=== PATIENT | male | born 1970 | race African-American/Black ===

== ENCOUNTER 2017-08-02 09:12 | Observation (INO) ==
[2017-08-02] MEDS ORDERED: NS 500 ML IV ONE (09:15)
[2017-08-02 09:47] VITALS: O2SAT 100
--- NOTE | 2017-08-02 09:53 | Emergency Department Report ---
Weakness HPI - General Chief complaint: Medical Emergency Stated complaint: lightheaded Time Seen by Provider: 08/02/17 09:14 Source: patient, family, EMS, RN notes reviewed, old records reviewed Mode of arrival: EMS Limitations: no limitations - History of Present Illness HPI Narrative: 47yo man presents to the ER for evaluation of 'dizziness'. Pt has had one week of progressive weakness, racing heart, cold sweats, and 'dizziness' (presyncope) . Pts sx got abruptly worse overnight. He called EMS this AM for txfr and evaluation as a result. Pt has not had these sx prior to a week ago. Denies taking medications. Admits to snorting some meth 2 weeks ago at the urging of a 'friend', but denies any illicit substances, other than 'weed'. MD Complaint: generalized weakness Onset (ago): week(s) (1) Duration: intermittent Location: generalized Migration: none Severity: severe Relieving factors: none Exacerbating factors: exertion, other (micturation) Associated symptoms: denies other symptoms - Related Data Home Medications Medication Instructions Recorded Confirmed No known Home medications [No home 08/02/17 08/02/17 meds] Allergies Allergy/AdvReac Type Severity Reaction Status Date / Time No Known Allergies Allergy Verified 08/02/17 09:39 Review of Systems All systems: reviewed and negative except as stated Constitutional: Reports: as per HPI, chills, weakness, night sweats. Denies: fever, weight change Cardiovascular: Reports: as per HPI, dyspnea on exertion, other (Racing heart). Denies: chest pain, palpitations, orthopnea, edema, syncope, paroxysmal nocturnal dyspnea Neurological: Reports: as per HPI, weakness. Denies: headache, numbness, paresthesias, confusion, abnormal gait, vertigo PFSH Patient Stated Medical History Substance Use Disorder Yes: MARIJUANA, METH HX Medical History Updates: Denies - Social History Smoking status: Current every day smoker (7 cigarets) Time spent discussing smoking cessation with patient: 3 to 10 minutes Physical Exam - Limitations Limitations: no limitations - General General appearance: alert, in no apparent distress - Head Head exam: atraumatic, normocephalic, normal inspection - Eye Eye exam: Present: normal appearance, PERRL, EOMI, other (Arcus senilis). Absent: scleral icterus - ENT ENT exam: Present: normal exam, normal oropharynx, mucous membranes moist, normal external ear exam - Neck Neck exam: Present: normal inspection, full ROM, trachea midline. Absent: tenderness, lymphadenopathy - Chest Chest inspection: Present: normal inspection, symmetric chest wall rise. Absent : tenderness, rash - Respiratory Respiratory exam: Present: normal lung sounds bilaterally. Absent: respiratory distress, wheezes, stridor, prolonged expiratory phase, crackles - Cardiovascular Cardiovascular exam: Present: normal rhythm, tachycardia, normal heart sounds. Absent: rubs, gallop, clicks - Abdominal Exam Abdominal exam: Present: soft, normal bowel sounds. Absent: distention, tenderness, guarding, rebound, rigidity - Extremities Exam Extremities exam: Present: normal inspection, full ROM, normal capillary refill. Absent: tenderness, pedal edema - Skin Skin exam: Present: warm, dry, intact. Absent: rash - Neurological Exam Neurological exam: Present: alert, oriented X3, CN II-XII intact, normal gait, motor sensory deficit - Psychiatric Psychiatric exam: Present: agitated, anxious Course - Consultations Consultation #1: Hospitalist: Will admit for further eval/treatment. Time: 12:11 Vital Signs Temperature 98.6 F 08/02/17 09:25 Pulse Rate 126 H 08/02/17 09:25 Respiratory Rate 22 08/02/17 09:25 Blood Pressure 119/68 08/02/17 09:25 Pulse Oximetry 100 08/02/17 09:25 Temperature 98.6 F 08/02/17 09:25 Pulse Rate 111 H 08/02/17 12:32 Respiratory Rate 24 08/02/17 12:30 Blood Pressure 128/74 08/02/17 12:30 Pulse Oximetry 100 08/02/17 12:30 Weakness - [facility] Narrative Medical decision making narrative: Pt with new-onset anemia and several abnormal findings on Abd/pelvic CT. Discussed with hospitalist, who will admit to treat pt acutely and consult surgery for scope/further eval/treatment. - Differential Diagnosis Differential diagnosis: Likely: acute myocardial infarction, anemia, hypoglycemia, dehydration (Endocarditis) - Medical Records Attestation: I reviewed the patient's medical records. - Lab Data Attestation: I reviewed the patient's lab results. Result diagrams: 08/02/17 09:54 08/02/17 09:54 Lab Results 08/02/17 08/02/17 08/02/17 Range/Units 09:54 09:54 10:09 WBC 7.3 (4.5-11.0) T/MM3 RBC 2.37 L (4.50-5.90) M/MM3 Hgb 6.3 L (13.5-17.5) GM/DL Hct 19.5 L (41-53) % MCV 82.3 (80-100) UM3 MCH 26.6 (26-34) UUG MCHC 32.3 (31-37) GM/DL RDW Std Deviation 47.3 (36.9-50.2) FL Plt Count 393 (130-400) T/MM3 MPV 9.5 (9.4-12.4) UM3 Immature Gran % (Auto) 0.3 (0.0-0.5) % Neut % (Auto) 76.4 H (33-66) % Lymph % (Auto) 13.7 L (23-45) % [place] % (Auto) 7.9 (0-9.0) % Eos % (Auto) 0.1 (0-4) % Baso % (Auto) 1.6 (0-2) % Neut # (Auto) 5.6 (1.8-7.7) T/MM3 Lymph # (Auto) 1.0 (1-4.8) T/MM3 [place] # (Auto) 0.6 (0-0.8) T/MM3 Eos # (Auto) 0.0 (0-0.5) T/MM3 Baso # (Auto) 0.1 (0-0.2) T/MM3 Abs Immat Gran (auto) 0.02 (0.00-0.03) T/MM3 Turbidity < 20 (0-20) Sodium 142 (134-144) MEQ/L Potassium 3.8 (3.6-5) MEQ/L Chloride 110 H (98-107) MEQ/L Carbon Dioxide 21 L (22-30) MEQ/L Anion Gap 11 (5-15) meq/L BUN 14.0 (9-20) MG/DL Creatinine 0.8 (0.8-1.5) mg/dL GFR Calculation 103 BUN/Creatinine Ratio 18 (6-26) RATIO Glucose 139 H (75-110) MG/DL Calculated Osmolality 276 (261-280) MOSM/KG Calcium 8.9 (8.4-10.2) MG/DL Phosphorus 2.6 (2.5-4.5) MG/DL Magnesium 1.8 (1.6-2.3) MG/DL Total Bilirubin 0.30 (0.20-1.30) MG/DL Icterus Index < 2 (0-7) AST 36 (17-59) U/L ALT 22 (1-50) U/L Alkaline Phosphatase 143 H (38-126) U/L Troponin I < 0.012 (0-0.12) ng/ml NT-Pro-B Natriuret Pep 102 (0-175) pg/mL Total Protein 6.2 L (6.3-8.2) g/dL Albumin 3.7 (3.5-5.0) g/dL Globulin 2.5 (2.4-3.6) G/DL Albumin/Globulin Ratio 1.5 (1.1-2.2) RATIO TSH 0.85 (0.47-4.68) mIU/L Specimen Hemolysis < 15 (0-25) Ur Collection Type Urine, void-cc/notcc Urine Color Yellow (YELLOW) Urine Clarity Clear Urine pH 8.0 (5.0-8.0) Ur Specific [place] 1.010 L (1.015-1.025) Urine Protein Negative (NEGATIVE) Urine Glucose (UA) Negative (NEGATIVE) Urine Ketones Negative (NEGATIVE) Urine Occult Blood Negative (NEGATIVE) Urine Nitrate Negative (NEGATIVE) Urine Bilirubin Negative (NEGATIVE) Urine Urobilinogen 1.0 (NORMAL) EU/DL Ur Leukocyte Esterase Negative (NEGATIVE) Urinalysis Comment Microscopic not ind. Urine Opiates Screen ng/mL Ur Oxycodone Screen ng/mL Urine Methadone Screen ng/mL Ur Propoxyphene Screen ng/mL Ur Barbiturates Screen ng/mL U Tricyclic Antidepress ng/mL Ur Phencyclidine Scrn ng/mL Ur Amphetamines Screen ng/mL U Methamphetamines Scrn ng/mL U Benzodiazepines Scrn ng/mL Urine Cocaine Screen ng/mL U Cannabinoids Screen ng/mL Ur Drug Screen Confirm Blood Type Antibody Screen Crossmatch (AHG) 08/02/17 08/02/17 08/02/17 Range/Units 10:09 10:09 10:53 WBC (4.5-11.0) T/MM3 RBC (4.50-5.90) M/MM3 Hgb (13.5-17.5) GM/DL Hct (41-53) % MCV (80-100) UM3 MCH (26-34) UUG MCHC (31-37) GM/DL RDW Std Deviation (36.9-50.2) FL Plt Count (130-400) T/MM3 MPV (9.4-12.4) UM3 Immature Gran % (Auto) (0.0-0.5) % Neut % (Auto) (33-66) % Lymph % (Auto) (23-45) % [place] % (Auto) (0-9.0) % Eos % (Auto) (0-4) % Baso % (Auto) (0-2) % Neut # (Auto) (1.8-7.7) T/MM3 Lymph # (Auto) (1-4.8) T/MM3 [place] # (Auto) (0-0.8) T/MM3 Eos # (Auto) (0-0.5) T/MM3 Baso # (Auto) (0-0.2) T/MM3 Abs Immat Gran (auto) (0.00-0.03) T/MM3 Turbidity (0-20) Sodium (134-144) MEQ/L Potassium (3.6-5) MEQ/L Chloride (98-107) MEQ/L Carbon Dioxide (22-30) MEQ/L Anion Gap (5-15) meq/L BUN (9-20) MG/DL Creatinine (0.8-1.5) mg/dL GFR Calculation BUN/Creatinine Ratio (6-26) RATIO Glucose (75-110) MG/DL Calculated Osmolality (261-280) MOSM/KG Calcium (8.4-10.2) MG/DL Phosphorus (2.5-4.5) MG/DL Magnesium (1.6-2.3) MG/DL Total Bilirubin (0.20-1.30) MG/DL Icterus Index (0-7) AST (17-59) U/L ALT (1-50) U/L Alkaline Phosphatase (38-126) U/L Troponin I (0-0.12) ng/ml NT-Pro-B Natriuret Pep (0-175) pg/mL Total Protein (6.3-8.2) g/dL Albumin (3.5-5.0) g/dL Globulin (2.4-3.6) G/DL Albumin/Globulin Ratio (1.1-2.2) RATIO TSH (0.47-4.68) mIU/L Specimen Hemolysis (0-25) Ur Collection Type Urine Color (YELLOW) Urine Clarity Urine pH (5.0-8.0) Ur Specific [place] (1.015-1.025) Urine Protein (NEGATIVE) Urine Glucose (UA) (NEGATIVE) Urine Ketones (NEGATIVE) Urine Occult Blood (NEGATIVE) Urine Nitrate (NEGATIVE) Urine Bilirubin (NEGATIVE) Urine Urobilinogen (NORMAL) EU/DL Ur Leukocyte Esterase (NEGATIVE) Urinalysis Comment Urine Opiates Screen Negative ng/mL Ur Oxycodone Screen Negative ng/mL Urine Methadone Screen Negative ng/mL Ur Propoxyphene Screen Negative ng/mL Ur Barbiturates Screen Negative ng/mL U Tricyclic Antidepress Negative ng/mL Ur Phencyclidine Scrn Negative ng/mL Ur Amphetamines Screen Negative ng/mL U Methamphetamines Scrn Negative ng/mL U Benzodiazepines Scrn Negative ng/mL Urine Cocaine Screen Negative ng/mL U Cannabinoids Screen Positive ng/mL Ur Drug Screen Confirm Sent out Blood Type B Positive Antibody Screen Negative Crossmatch (AHG) See Detail - Radiology Data Attestation: I reviewed the patient's radiology results. CXR: IMPRESSION: No acute cardiopulmonary abnormality. CT Abd/pelv: Impression: 1. 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 This could be related to an inflammatory or neoplastic process in the proximal stomach. An additional common cause of splenic vein thrombosis would be pancreatic pathology such as pancreatitis or pancreatic neoplasm. I do not see a definite pancreatic mass or pancreatic region inflammation on this study. 2. Soft tissue prominence in the cardia region of the stomach, pylorus and GE junction. Recommend upper endoscopy to evaluate for neoplasm, ulcer or hemorrhage. 3. Hepatic steatosis. 4. Cholelithiasis. - EKG Data EKG #1 EKG attestation: Yes: I reviewed and interpreted this EKG. EKG shows normal: sinus rhythm, axis, QRS complexes, ST-T waves Rate: tachycardia P waves: other (Short ID interval) Disposition Clinical Impression: Gastric mass, Splenic vein thrombosis, Splenic infarct Anemia Qualifiers: Anemia type: iron deficiency Iron deficiency anemia type: chronic blood loss Qualified Code(s): D50.0 - Iron deficiency anemia secondary to blood loss ( chronic) Disposition: 02 To OBS NM Condition: Improved Time of Disposition: 12:15 - Seen By: physician
--- NOTE | 2017-08-02 10:37 | XRay Report ---
Indication: Dizziness PROCEDURE: XR chest 1V: Encounter: Initial Comparison: None FINDINGS: The lungs are clear. There is no abnormal airspace opacity, pleural effusion or pneumothorax identified. The heart size, pulmonary vasculature and mediastinum are within normal limits. No significant skeletal abnormality is seen. IMPRESSION: No acute cardiopulmonary abnormality. .
[2017-08-02] MEDS ORDERED: SALINE FLUSH 10ml SYRINGE ONE (10:44)
[2017-08-02] MEDS ORDERED: IOHEXOL 300mg/ml 100ml INJECTION ONE (10:44)
--- NOTE | 2017-08-02 11:55 | CT Scan Report ---
Indication: Anemia PROCEDURE: CT abdomen pelvis w con: Encounter: Initial Comparison: None Technique: Axial CT images were performed through the abdomen and pelvis after the administration of intravenous contrast. Coronal and sagittal two-dimensional reformats. Automated Exposure Control and Iterative Reconstruction dose reducing techniques were utilized. Contrast: Omnipaque 300 100 mL Findings: 5 cm bulla in the right lower lobe. Mild scarring in the posterior right lower lobe as well. The liver shows fatty infiltration without enhancing mass or bile duct dilatation. Multiple small gallstones present. Stomach is distended with fluid and contains an area of high attenuation in the cardia region measuring 8.5 cm in diameter that could represent food debris, hemorrhage or soft tissue. There is also thickening of the GE junction region. There is also soft tissue prominence of the pyloric region seen on axial image #28 and coronal image #23. Spleen shows areas of peripheral decreased attenuation particularly in the superior aspect best seen on axial image 11 and coronal image #40. The pancreas is normal. The adrenal glands are unremarkable. The kidneys show no acute findings. No abdominal or pelvic adenopathy. Bladder is normal. Prostate is unremarkable. No free fluid. There are prominent varices seen along the greater curvature of the stomach. The splenic vein is thrombosed. No evidence of a bowel obstruction. The appendix is normal. Bone windows are within normal limits. Impression: 1. 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 This could be related to an inflammatory or neoplastic process in the proximal stomach. An additional common cause of splenic vein thrombosis would be pancreatic pathology such as pancreatitis or pancreatic neoplasm. I do not see a definite pancreatic mass or pancreatic region inflammation on this study. 2. Soft tissue prominence in the cardia region of the stomach, pylorus and GE junction. Recommend upper endoscopy to evaluate for neoplasm, ulcer or hemorrhage. 3. Hepatic steatosis. 4. Cholelithiasis. Findings were discussed with the ordering physician at 1150 on August 02, 2017. .
[2017-08-02] MEDS: SALINE FLUSH 10ml SYRINGE IVF PRN ×2 (12:25→14:04)
[2017-08-02 12:57] VITALS: BMI 21.2
[2017-08-02 12:59] VITALS: RESP 16
--- NOTE | 2017-08-02 13:35 | History & Physical Report ---
History of Present Illness Date: 08/02/17 Chief complaint: Weakness, shortness of breath HPI: Best Rachel is a healthy 47 year old male who began feeling weak and easily fatigued about a week ago. A few days ago, he went for a bike ride, and was so weak and tired he simply couldn't ride his bike anymore and had to walk his bike back home. His thighs felt like they were burning. Once arriving home, he had to rest for 40 minutes to recover. He's been huffing and puffing. He's been unsteady on his feet, and needs to hold onto furniture to prevent from falling. He's nearly passed out. He's had diaphoresis and feels feverish when he's sweaty. A couple days ago he had a severe occipital headache - tried to relive it by walking and drinking fluids but it persisted until the next morning. He feels hungry all the time but only for certain things - fruit and fruit juice, salads. He knows he doesn't get enough protein in his diet, but admits that he' s been trying to eat cleaner housekeeping and get in better shape. He denies n/v/d, but describes black colored stools since last week. He does not take NSAIDs or ASA; drinks about 2-3 nights per week but used to drink heavily. No problems urinating. He denies easy bruising/bleeding. He has not had any recent URI symptoms. He's had anxiety in the past, and this has been worse today, and in fact he felt so poorly that he called 911 and was transferred to [facility] ED for evaluation. He was tachycardic with HR ranging from 110-134, but BP was stable and he was maintaining sats on room air. Hgb was very low at 6.3. CMP was normal except for a bicarb of 21, slightly elevated glucose at 139, and an alk phos of 143. UDS was positive for meth. TSH was normal at 0.85. A CT scan of his abdomen showed: 1. 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 This could be nrelated to an inflammatory or neoplastic process in the proximal stomach. An additional common cause of splenic vein thrombosis would be pancreatic pathology such as pancreatitis or pancreatic neoplasm. 2. Soft tissue prominence in the cardia region of the stomach, pylorus and GE junction. Recommend upper endoscopy to evaluate for neoplasm, ulcer or hemorrhage. 3. Hepatic steatosis. 4. Cholelithiasis. CXR was negative. EKG showed sinus tachycardia. He was given a 1L NS bolus in the ED with small improvement in HR. He was typed and screened. The ED physician contacted the hospitalist service and the patient was admitted to observation status. Review of Systems All systems PM: 10-point ROS was reviewed, no additional remarkable complaints except - EENMT Eyes: Absent: change in vision Nose: Present: as per HPI Mouth/Throat: Present: changes in swallowing - Cardiovascular Cardiovascular: Absent: chest pain, edema Vascular: Absent: pedal edema - Respiratory Respiratory: Present: as per HPI - Gastrointestinal Gastrointestinal: Present: as per HPI - Genitourinary Genitourinary: Present: as per HPI - Musculoskeletal Musculoskeletal: Present: as per HPI - Integumentary/Breasts Integumentary: Absent: rash, wounds - Neurological Neurological: Present: as per HPI - Psychiatric Psychiatric: Present: as per HPI - Endocrine Endocrine: Present: polydipsia - Hematologic/Lymphatic Hematologic/Lymphatic: Absent: easy bleeding, easy bruising Past Medical History Medical History Updates: Anxiety. Hisotry of pancreatitis Surgical History: None Family History Updates: Adopted, does not know any biologic family history. Family History: As Above - Social History Smoking status: Current some day smoker (started 1 year ago) Substance use type: marijuana (daily - trying to cut down) Alcohol intake frequency: a few times a week (24 oz of malt liquor (12% alcohol ) 2-3 nights per week. Used to drink heavily until about 2 years ago.) Household members: spouse Current occupational status: other (looking for employment) Previous occupational history: Special Education Educational Assistant, woodworking machinist Medications Home Medications Medication Instructions Recorded Confirmed Type No known Home medications [No home 08/02/17 08/02/17 History meds] Allergies Allergy/AdvReac Type Severity Reaction Status Date / Time No Known Allergies Allergy Verified 08/02/17 09:39 Exam Vital Signs: Temperature 96.1 F L 08/02/17 12:58 Pulse Rate 118 H 08/02/17 12:58 Respiratory Rate 16 08/02/17 12:58 Blood Pressure 126/71 08/02/17 12:58 Pulse Oximetry 100 08/02/17 12:58 Height/Weight/BMI: Height 1.83 m Weight 70.8 kg Body Mass Index 21.2 - Constitutional Present: well nourished, well developed, other (anxious) - Routine HEENT Exam Head: Present: normocephalic Eye: Present: PERRL. Absent: conjunctival icterus, scleral injection ENT: Present: mucous membranes moist - Routine Neck Exam Present: supple - Routine Respiratory Exam Present: CTA bilaterally - Routine Cardiovascular Exam Present: RRR, S1, S2, tachycardia - Routine Abdominal Exam Present: soft, normoactive bowel sounds, tenderness (mild epigastric), non distended - Routine Extremities Exam Present: no edema, pulses intact - Routine Back/Spine/Pelvis Exam Back/Spine: Present: full ROM - Routine Skin Exam Present: intact, dry, warm - Routine Neurological Exam Present: alert, oriented X3, vision grossly intact, hearing grossly intact, normal speech. Absent: motor deficit - Routine Psychiatric Exam Present: normal thought process, cooperative, anxious Results - Labs CBC & Chem 7: 08/02/17 09:54 08/02/17 09:54 - ECG Data Tracing #1 I reviewed this ECG and interpreted as documented below: sinus tachycardia normal axis normal r wave progression no st segment elevation/depression - Imaging and Cardiology CT scan - abdomen Status: image reviewed by me Additional comments: Date of Exam: 08/02/17 PROCEDURE: CT abdomen pelvis w con: Findings: 5 cm bulla in the right lower lobe. Mild scarring in the posterior right lower lobe as well. The liver shows fatty infiltration without enhancing mass or bile duct dilatation. Multiple small gallstones present. Stomach is distended with fluid and contains an area of high attenuation in the cardia region measuring 8.5 cm in diameter that could represent food debris, hemorrhage or soft tissue. There is also thickening of the GE junction region. There is also soft tissue prominence of the pyloric region seen on axial image # 28 and coronal image #23. Spleen shows areas of peripheral decreased attenuation particularly in the superior aspect best seen on axial image 11 and coronal image #40. The pancreas is normal. The adrenal glands are unremarkable. The kidneys show no acute findings. No abdominal or pelvic adenopathy. Bladder is normal. Prostate is unremarkable. No free fluid. There are prominent varices seen along the greater curvature of the stomach. The splenic vein is thrombosed. No evidence of a bowel obstruction. The appendix is normal. Bone windows are within normal limits. Impression: 1. 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 This could be related to an inflammatory or neoplastic process in the proximal stomach. An additional common cause of splenic vein thrombosis would be pancreatic pathology such as pancreatitis or pancreatic neoplasm. I do not see a definite pancreatic mass or pancreatic region inflammation on this study. 2. Soft tissue prominence in the cardia region of the stomach, pylorus and GE junction. Recommend upper endoscopy to evaluate for neoplasm, ulcer or hemorrhage. 3. Hepatic steatosis. 4. Cholelithiasis. Chest x-ray Status: image reviewed by me Additional comments: Date of Exam: 08/02/17 PROCEDURE: XR chest 1V: FINDINGS: The lungs are clear. There is no abnormal airspace opacity, pleural effusion or pneumothorax identified. The heart size, pulmonary vasculature and mediastinum are within normal limits. No significant skeletal abnormality is seen. IMPRESSION: No acute cardiopulmonary abnormality. Assessment and Plan (1) Anemia Current visit: Yes Status: Acute Assessment and Plan: Assessment & Plan Admit, observation status, under the hospitalist service. Anemia, suspect ABLA from upper GI source; abnormal CT scan with soft tissue prominence of the stomach, pylorus, and GE junction -Type & cross for 2 units PRBC -Consult Dr. Jensen for endoscopy -NPO -Protonix BID -Check iron studies, vit. 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 His is present. He presented to the ED with weakness, near syncope and SOA. He was found to have a Hgb of 6.3. He has had black stools lately. He has had intermittent diaphoresis. He has fatigue, weakness, lightheadedness. He had had ROGERS. He denies CP or palp. NO cough or sputum. He does admit that at times things will get stuck in his esophagus. He denies abdominal pain. No edema. Surgery has been consulted. Physical Exam: Gen: alert and oriented. NAD Skin: warm and dry HEENT: NC/AT PERRL, EOMI, Sclera, lids and conjunctiva wnl, MMM, OP clear Neck: supple. No JVD, Carotids 2+ without bruits. Lungs: clear, No rales, rhonchi, wheezes. CV: regular. No murmur, rub or gallop Abd: soft. TTP in the epigastric region. ND, +BS MS: No edema. Good strength and ROM. Pedal pulses strong. Neuro: No focal deficit Psy: normal mood and affect A/P: 1. Anemia with melena -Likely Upper GIB -surgery consulted -Transfuse -repeat labs -PPI -check iron profile, B12 -Check coag panel, bilirubin 2. 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 Sinus tachycardia -tele -IVF/transfuse -monitor/treat any withdrawal sx 4. EtOH use; polysubstance abuse; anxiety -withdrawal protocol -check EtOH level -give folate and thiamine IV until diet is advanced 5. Anxiety -Ativan prn 6. Prophylaxis -SCDs, PPI Pt independently interviewed and examined by me. My documentation is noted above. I have reviewed his labs, notes and imaging. Pt discussed with IT PROGRAMMER and plan formulated together. I agree with assessment and plan. Hospital Course Summary Disclaimer: The visit summary below is not to be considered part of the above Progress Note. Hospital Course: 08/02/17 Assessment & Plan Admit, observation status, under the hospitalist service. Anemia, suspect ABLA from upper GI source; abnormal CT scan with soft tissue prominence of the stomach, pylorus, and GE junction -Type & cross for 2 units PRBC -Consult Dr. Jensen for endoscopy -NPO -Protonix BID -Check iron studies, vit. 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
[2017-08-02] MEDS ORDERED: DiphenhydrAMINE 25 MG CAPSULE PO ONE (13:37)
[2017-08-02] MEDS ORDERED: NS FLUSH BAG 500ml IV PRN (13:37)
[2017-08-02] MEDS ORDERED: OXAZEPAM 15 MG CAPSULE PO PRN (14:29)
[2017-08-02] MEDS ORDERED: THIAMINE 200mg/2ml INJECTION IVP SCH ×2 (14:30→19:00)
[2017-08-02] MEDS ORDERED: FOLIC ACID INJ 1 MG in NS 50 ML IV SCH ×2 (14:45→19:00)
[2017-08-02] MEDS ORDERED: NS 1,000 ML IV SCH (17:00)
[2017-08-02 20:12] VITALS: BP 130/80; PULSE 91; TEMP 98.3
[2017-08-02] MEDS ORDERED: PANTOPRAZOLE 40 MG INJECTION IVP SCH (21:00)
--- NOTE | 2017-08-03 10:32 | Consultation ---
DATE OF CONSULTATION 08/02/2017 HISTORY OF PRESENT ILLNESS This patient is 47 years old. This patient began to feel weak and easily fatigued starting about a week ago. The patient also has had some black colored stools for the past week. The patient denies any recent hematemesis. He denies any recent dark red or bright red rectal bleeding. He has had no recent abdominal pain. The patient did feel weak and fatigued enough by the morning for 08/02/2017 that he called 9-1-1 and was transported by ambulance to [facility] emergency room for evaluation. The patient was found at the emergency room to have a hemoglobin of 6.3 and a hematocrit of 19.5. The patient did undergo a CT scan of the abdomen and pelvis at the emergency room which showed multiple abnormalities as described below. The patient was admitted to [facility] for further treatment. The patient has been transfused with one unit of packed red blood cells since admission to the hospital. There are plans to transfuse the patient with a second unit of packed red blood cells. PAST MEDICAL HISTORY The patient states he has had no previous operations. PHYSICAL EXAMINATION VITAL SIGNS: Temperature is 96.1 degrees Fahrenheit axillary. Pulse is 118. Respiratory rate is 16. Blood pressure is 126/71. Oxygen saturation is 100% on room air. Height is 1.83 meters. Weight is 70.8 kg. BMI is 21.2 kg/m2. ABDOMEN: The abdomen is soft and nontender. No abdominal masses. LABORATORY DATA Hemoglobin was 6.3 and hematocrit was 19.5 at 0954 hours on 08/02/2017. White blood cell count was 7300 at this time. Platelet count was 393,000. IMAGING DATA The patient did have a CT scan of the abdomen and pelvis on the morning of 08/02. The CT scan does show multiple small gallstones. The stomach appeared to be distended with fluid. There was an 8.5 cm area at the cardia of the stomach which could represent food debris, hemorrhage or soft tissue. There was also some thickening at the gastroesophageal junction area. There was also some soft tissue prominence of the pylorus. The pancreas appeared normal. There are prominent varices seen along the greater curvature of the stomach. The splenic vein is thrombosed. There was no evidence of any bowel obstruction. The appendix appeared normal. There appeared be areas of splenic infarct associated with the splenic vein thrombosis. IMPRESSION 1. 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 2. Prominent gastric varices demonstrated on 08/02/2017 CT scan of the abdomen and pelvis. 3. Cholelithiasis. 4. History of recent black stools. 5. Severe iron deficiency anemia probably due to acute or chronic gastrointestinal tract blood loss from gastric varices. RECOMMENDATION Esophagogastroduodenoscopy for further evaluation of the stomach and confirmation of the diagnosis of gastric varices. INFORMED DISCLOSURE I did inform the patient of the nature of the esophagogastroduodenoscopy procedure. Expected benefits were reviewed. Alternatives were reviewed. Potential risks and complications were reviewed including anesthetic risk, aspiration, hypoxia, induced bleeding from the gastric varices as well as other possible complications. Questions were solicited from the patient. The patient did have various questions which were all answered to his satisfaction today. The patient had no remaining questions at the end of the discussion. PLAN Schedule patient for esophagogastroduodenoscopy by Dr. Jensen tomorrow morning at [facility]. The patient states today that he has not absolutely decided whether or not he will give consent to undergo this procedure but will give consideration to the recommendation that he undergo the esophagogastroduodenoscopy procedure. FERNY
--- NOTE | 2017-08-04 07:42 | Discharge Summary ---
Discharge Information Date of admission: 08/02/17 12:12 Anticipated date of discharge: 08/02/17 (Pt left AMA) Attending Physician: Xiomara Blakely MD Consults: 08/02/17 13:36 Physician Consult [CONS] Routine Consulting Provider: Cal Jensen Reason For Exam: gi b leed Ordering Provider has Notified Environmental Engineer: Yes - Discharge Diagnosis (1) Anemia Status: Acute Anemia-likely ABLA Probably upper GIB - Procedures Procedures: None - Laboratory Labs: 08/02/17 21:03 - Radiology Radiology: CT Abd and Pelvis 07/23/17 Impression: 1. 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 This could be related to an inflammatory or neoplastic process in the proximal stomach. An additional common cause of splenic vein thrombosis would be pancreatic pathology such as pancreatitis or pancreatic neoplasm. I do not see a definite pancreatic mass or pancreatic region inflammation on this study. 2. Soft tissue prominence in the cardia region of the stomach, pylorus and GE junction. Recommend upper endoscopy to evaluate for neoplasm, ulcer or hemorrhage. 3. Hepatic steatosis. 4. Cholelithiasis. History of Present Illness HPI: Best Rachel is a healthy 47 year old male who began feeling weak and easily fatigued about a week ago. A few days ago, he went for a bike ride, and was so weak and tired he simply couldn't ride his bike anymore and had to walk his bike back home. His thighs felt like they were burning. Once arriving home, he had to rest for 40 minutes to recover. He's been huffing and puffing. He's been unsteady on his feet, and needs to hold onto furniture to prevent from falling. He's nearly passed out. He's had diaphoresis and feels feverish when he's sweaty. A couple days ago he had a severe occipital headache - tried to relive it by walking and drinking fluids but it persisted until the next morning. He feels hungry all the time but only for certain things - fruit and fruit juice, salads. He knows he doesn't get enough protein in his diet, but admits that he' s been trying to eat wafer cleaner and get in better shape. He denies n/v/d, but describes black colored stools since last week. He does not take NSAIDs or ASA; drinks about 2-3 nights per week but used to drink heavily. No problems urinating. He denies easy bruising/bleeding. He has not had any recent URI symptoms. He's had anxiety in the past, and this has been worse today, and in fact he felt so poorly that he called 911 and was transferred to [facility] ED for evaluation. He was tachycardic with HR ranging from 110-134, but BP was stable and he was maintaining sats on room air. Hgb was very low at 6.3. CMP was normal except for a bicarb of 21, slightly elevated glucose at 139, and an alk phos of 143. UDS was positive for meth. TSH was normal at 0.85. A CT scan of his abdomen showed: 1. 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 This could be nrelated to an inflammatory or neoplastic process in the proximal stomach. An additional common cause of splenic vein thrombosis would be pancreatic pathology such as pancreatitis or pancreatic neoplasm. 2. Soft tissue prominence in the cardia region of the stomach, pylorus and GE junction. Recommend upper endoscopy to evaluate for neoplasm, ulcer or hemorrhage. 3. Hepatic steatosis. 4. Cholelithiasis. CXR was negative. EKG showed sinus tachycardia. He was given a 1L NS bolus in the ED with small improvement in HR. He was typed and screened. The ED physician contacted the hospitalist service and the patient was admitted to observation status. Objective Vital signs: Temperature 98.3 F 08/02/17 20:11 Pulse Rate 91 08/02/17 20:11 Respiratory Rate 16 08/02/17 20:11 Blood Pressure 130/80 08/02/17 20:11 Pulse Oximetry 100 08/02/17 20:11 Height/Weight/BMI: Height 1.83 m Weight 70.8 kg Body Mass Index 21.2 Comments: Gen: alert and oriented. NAD Skin: warm and dry HEENT: NC/AT PERRL, EOMI, Sclera, lids and conjunctiva wnl, MMM, OP clear Neck: supple. No JVD, Carotids 2+ without bruits. Lungs: clear, No rales, rhonchi, wheezes. CV: regular. No murmur, rub or gallop Abd: soft. TTP in the epigastric region. ND, +BS MS: No edema. Good strength and ROM. Pedal pulses strong. Neuro: No focal deficit Psy: normal mood and affect Hospital Course This is a general summary of the patient's hospital course. For more details refer to the complete medical record. Hospital course: 08/02/17 Assessment & Plan Admit, observation status, under the hospitalist service. Anemia, suspect ABLA from upper GI source; abnormal CT scan with soft tissue prominence of the stomach, pylorus, and GE junction -Type & cross for 2 units PRBC -Consult Dr. Jensen for endoscopy -NPO -Protonix BID -Check iron studies, vit. 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 Jensen saw the pt in consult and recommended EGD. The pt did not want to undergo this procedure and wished to leave after his blood transfusion. He was advised against it but decided to leave AMA once the blood was in. Discharge Plan - Discharge Disposition Disposition: Against Medical Advice *Condition: Improved Reason For Visit (Visit label in EMR): Anemia,thrombosis,gastric mass - Discharge Medications *Discharge Medications: No Action No known Home medications [No home meds] 0 #0 misc - Discharge Packet/Instructions *Diet: N/A *Activity: N/A *Pain Management/Treatment: N/A *Wound Care: N/A *Expected Signs/Symptoms: N/A *Notify Physician if: N/A *During Business Hours Contact: N/A *After Business Hours Contact: N/A *Pending Lab/Results: No Pending Lab - Referrals/Follow Up - Patient Handouts Patient Handouts: Anemia (DC), Thrombolysis (DC), Blood Transfusion (GEN) - Dismissal Complete Discharge Instructions are:: Complete Physician Narrative - Narrative Attestation Narrative: Date: 08/04/17 Time: 0739
== END 2017-08-02 21:05 | disposition left against medical advice (07) ==
LOC: ED 09:12 → SRG 09:12
PROVIDERS: ADMIT Internal Medicine Cardiovascular Disease; ATTEND Internal Medicine Cardiovascular Disease